=== PATIENT | male | born 1990 | race Caucasian/White ===

== ENCOUNTER → 2017-12-08 16:21 | Outpatient (CLI) | payer BC, SELFPAY ==
--- NOTE | 2017-12-08 | XR_ITS ---
XR lumbar spine min 4V Ordering Physician: Carlitos Lopez MD Patient Age: 27 years: Male HISTORY: ITS.REASON: SPINAL STENOSIS HISTORY of spinal stenosis with neurogenic claudication. No injury or trauma TECHNIQUE: 5 view lumbar spine series COMPARISON : 2008 Previous L-spine series FINDINGS The vertebral bodies appear intact with no compression fracture nor lesion. Transitional vertebra is seen at T12. Pedicles and transverse processes are intact. No acute findings There is some mild narrowing at L4/5 disc space and L5/S1 with borderline narrowing at L3/4. No spondylolysis nor listhesis is identified but there is suggestion of relatively short pedicles of mild relative narrowing AP diameter of the spine which may be gland itself to developing spinal stenosis as well as suggested in history. No CT or MRI studies here. There is trace calcification at the posterior margin L 2/3 disc also noted which may be associated with a mild disc bulge IMPRESSION: No acute findings no fracture Suggestion of minimal disc space narrowing L4/5 and L5/S1 disc space, with borderline narrowing L3/4 disc . Additional comments in text
--- NOTE | 2017-12-08 | XR_ITS ---
XR hip LT 2-3V w/pelvis Ordering Physician: Carlitos Lopez MD Patient Age: 27 years: Male HISTORY: ITS.REASON: LEFT HIP PAIN Right hip pain. Neurogenic claudication history of spinal stenosis suggested TECHNIQUE: AP frog-leg left hip along with AP pelvis from the lumbar spine series offset hip study COMPARISON :AP pelvis & right hip exam 12/08/2017 FINDINGS Left femoral head and neck are intact femoral head normal density and contour. Hip joint spaces well-maintained. No fracture nor dislocation. Trochanteric region intact & unremarkable AP pelvis. Intact with no acute or significant findings. Both hips appear symmetric with joint space well maintained. Sacrum and SI joints unremarkable on these views. IMPRESSION: Negative left hip.
--- NOTE | 2017-12-08 | XR_ITS ---
XR hip RT 2-3V w/pelvis Ordering Physician: Carlitos Lopez MD Patient Age: 27 years: Male HISTORY: ITS.REASON: RIGHT HIP PAIN Progressive right hip pain. TECHNIQUE: AP frog-leg view right hip along with AP pelvis. COMPARISON : FINDINGS The right femoral head and neck are intact femoral head normal density and contour. Hip joint spaces well-maintained. No fracture nor dislocation. Trochanteric region intact an unremarkable AP pelvis. Intact with no acute or significant findings. Both hips appear symmetric with joint space well maintained. Sacrum and SI joints unremarkable on these views. IMPRESSION: Negative right hip and AP pelvis
== END ==
PROVIDERS: PCP Internal Medicine Adolescent Medicine; Visit Provider Internal Medicine Adolescent Medicine
DX: M25.551 Pain in right hip (principal); M48.062 Spinal stenosis, lumbar region with neurogenic claudication
CPT/HCPCS: 72110; 73502

== ENCOUNTER → 2017-12-31 10:58 | Outpatient (CLI) | payer BC, SELFPAY ==
--- NOTE | 2017-12-31 11:26 | MR_ITS ---
MR lumbar spine wo con, MR 3-d myelogram/MRCP HISTORY: PT states low back pain X years But flared back up in mid November. ITS.REASON: SPINAL STENOSIS OF LUMBAR REGION, LOW BACK PAIN ORDERING PHYSICIAN: Carlitos Lopez MD PATIENT AGE: 27 years Comparison: X-RAY 12/08/17 TECHNIQUE: Standard multiplanar multiecho sequences are performed without contrast. 3-D MIP and myelographic images are also rendered and reviewed FINDINGS: There is normal alignment. The spinal cord ends at the T12 level. T11-T12, T12-L1, L1-L2 have an unremarkable appearance. L2-L3: Minimal bulging disc slightly eccentric towards the left lung with mild facet and ligamentum flavum hypertrophic change. L3-L4: Degenerative disc disease with bulging disc eccentric towards the left a small broad-based left paracentral disc protrusion. This impinges upon the left L4 nerve root causing left lateral recess narrowing. L4-L5: Degenerative disc disease with bulging disc along facet and ligamentum flavum hypertrophy with mild bilateral foraminal narrowing. Minimal broad-based bulging disc is present at this level. L5-S1: Degenerative disc disease with bulging disc with narrowing of the canal is 11 mm and mild bilateral foraminal narrowing. IMPRESSION: 1. Degenerative disc disease with bulging disc eccentric towards the left with a small broad-based left paracentral disc protrusion. This impinges upon the left L4 nerve root causing left lateral recess narrowing 2. Mild bulging disc at L2-L3 slightly eccentric toward the left and mild bulging disc at L4-5.
== END ==
PROVIDERS: PCP Internal Medicine Adolescent Medicine; Visit Provider Internal Medicine Adolescent Medicine
DX: M48.062 Spinal stenosis, lumbar region with neurogenic claudication (principal); M54.5 Low back pain
CPT/HCPCS: 72148; 76376; A9502

== ENCOUNTER → 2020-10-23 08:39 | Outpatient (POV) | payer BC, SELFPAY ==
[2020-10-23 08:51] VITALS: BP 125/74; PULSE 74; RESP 18; O2SAT 98; BMI 28.2
--- NOTE | 2020-10-23 09:11 | HMH.PMCON ---
Assessment and Plan (1) Degenerative disc disease Status: Chronic Category: Medical (2) Lumbar radiculopathy Status: Chronic Category: Medical Code(s): M54.16 - Radiculopathy, lumbar region (3) Back pain Status: Chronic Category: Medical Code(s): M54.9 - Dorsalgia, unspecified - Assessment and plan all Dx Assessment and Plan for all problems:: We will see the patient back on an as-needed basis. If he does have a flare of pain we will plan an L4-L5 lumbar epidural steroid injection. He is not on any anticoagulation. He has been dealing with this for more than 6 months. He is failed medication management and anti-inflammatories. Dr. Perry has reviewed this note and agrees with this plan of care. This note was dictated using voice recognition software and may contain errors or omissions HPI - Data of Consult Consult date: 10/23/20 Requesting Physician: Ariella Carrasco APRN Primary Care Provider: Carlitos Lopez MD - Consult Narrative Reason for consult: Back pain History of present illness: Mr. Zimmer is a 30 year old male who presents today for consultation regards his low back and leg pain. Patient has an MRI showing degenerative disc disease and nerve impingement at the L3-L4 nerve root. Patient does have bilateral radiculopathy. He rates his pain a 3 out of 10 stating that it is not bad at this time. Patient does have flares. He has been seen by neurosurgeon however it was determined that he is not a candidate for surgery. Patient states that stretching, heat, ice decrease pain. Patient would like to establish care today. CC: Ariella Carrasco APRN [facility] History I have reviewed the patient's past medical history: Yes Medical History: Denies:: Cancer, Diabetes Mellitus Type 1, Diabetes Mellitus Type 2, Internal Pacemaker, MRSA *Have you ever received a pneumonia vaccine?: Yes *Have you received a flu vaccine this season?: Yes Other Surgeries: No: Pacemaker Amputation: No - *Social History Last grade of school completed: Some college Smoking Status: Never smoker Alcohol Intake: never *Occupational Status:: employed Housing: house Household Members: spouse *Travel in the last 8 weeks: None Family Hx:: Unable to obtain Review of Systems - Review of Systems ROS General: no recent weight change, no fever, no sleep disturbances Respiratory: no cough, no shortness of air, no recurring pulmonary infections Cardiovascular/Peripheral Vascular: No chest pain, No palpitations, no edema, no shortness of breath. Gastrointestinal: no new onset incontinence, normal bowel movements reported Genitourinary: no new onset incontinence Musculoskeletal: Back pain, leg pain at times Psychiatric: normal mood/ affect Neurological: [denies new onset weakness in extremities], [denies new onset balance issues] Meds Home Medications Medication Instructions Recorded Confirmed Type Amoxicillin/Potassium Clav 1 tab PO Q12H 10 Days #20 tab 02/04/19 Rx [Augmentin 875-125 Tablet] Mupirocin [Mupirocin 2% UD oint 1 gm TP TID 1 Days #1 applic 02/04/19 Rx 1gm Topical syr] Allergies Allergy/AdvReac Type Severity Reaction Status Date / Time No Known Allergies Allergy Verified 02/04/19 14:20 Objective Vital signs: Pulse Resp BP Pulse Ox 74 18 125/74 98 10/23/20 08:51 10/23/20 08:51 10/23/20 08:51 10/23/20 08:51 Narrative: Physical Exam General: Alert and oriented x3, no acute distress, pleasant and cooperative, [on room air] Lungs: Resps E/U, Symmetrical chest expansion, Eyes: PERRL Musculoskeletal: Flexion and extension of lumbar spine somewhat guarded secondary to pain, deep tendon reflexes normal, strength in upper and lower extremities [5/5], normal gait noted Neurological: speech clear, pipe liner equal, no gross sensory deficits Opioid Risk Tool - Opioid Risk Tool-Male Family hx alcohol abuse: N Family hx illegal drugs: N
== END ==
PROVIDERS: PCP Internal Medicine Adolescent Medicine; Visit Provider Clinical Nurse Specialist Family Health
DX: M51.16 Intervertebral disc disorders with radiculopathy, lumbar region (principal)
CPT/HCPCS: 99202; G0463

== ENCOUNTER 2024-10-04 21:13 | Day surgery (SDC) | payer BC, SELFPAY ==
[2024-10-04] VITALS (7 sets, daily range): BP systolic 100–155; BP diastolic 69–91; PULSE 76–102; RESP 16–18; TEMP 36.2–37; O2SAT 98–100; BMI 29.7
--- NOTE | 2024-10-04 21:32 | HMH.EDGENADL ---
Discharge Plan Disposition Patient Disposition: Admitted Condition: Serious Prescriptions Prescriptions: No Action mupirocin 1 GM ointment 1 gm TP TID 1 Days Qty: 1 0RF amoxicillin-pot clavulanate 1 EACH tablet 1 tab PO Q12H 10 Days Qty: 20 0RF Referrals Follow up/Referrals: Carlitos Lopez MD [Primary Care Provider] - See instructions Clinical Impressions Clinical Impression: Food impaction of esophagus Qualifiers: Encounter type: initial encounter Qualified Code(s): T18.128A - Food in esophagus causing other injury, initial encounter Instructions Patient Instructions: DI for Skin Abscess Print Language Print Language: Slovenian Discharge ED Provider: Poppy Barrett General Adult HPI <KIMMIE Lakhani - Last Filed: 10/04/24 21:40> General Chief complaint: Skin/Abscess/Foreign Body Stated complaint: Piece of steak stuck in throat Time Seen by Provider: 10/04/24 21:32 Mode of Arrival: Ambulatory Source of Information: Patient Limitations: No Limitations Description of Symptoms (Recalled from ER Triage Doc. by RN): Pt presents with c/o having a piece of steak stuck in his throat. History of Present Illness HPI narrative: Patient presents for evaluation of food impaction. Patient was eating steak he felt like he got stuck going down. He has tried drinking pop jumping up and down and cannot relieve the sensation. He is intolerant of oral intake. He is able to tolerate his secretions currently but vomits it up periodically. This is never happened before and he denies chest pain shortness of breath fever chills hemoptysis hematochezia melena nausea vomit diarrhea. Related Data Previous Rx's ?Medication ?Instructions ?Recorded amoxicillin 875 mg-potassium 1 tab PO Q12H 10 days #20 tabs 02/04/19 clavulanate 125 mg tablet mupirocin 2 % topical ointment 1 gm TP TID 1 day #1 applic 02/04/19 Allergies Allergy/AdvReac Type Severity Reaction Status Date / Time No Known Allergies Allergy Verified 02/04/19 14:20 PFSH <KIMMIE Lakhani - Last Filed: 10/04/24 21:40> PFS Disclaimer: The information contained in this section may have been updated after the patient was seen, as this information can be updated by other users. Social History Smoking Status: Never smoker alcohol intake: never current occupational status: employed Travel in the last 8 weeks: None household members: spouse housing: house current occupation: [employer] current occupational exposures/hazards: No Have you lived/traveled outside US in past 30 days?: No Contact w/someone who lives/traveled outside US past 30 days?: No Exposure to someone with infectious disease in past 14 days?: No Do you have a fever (greater than 100.4 F or 38 C)?: No Have you tested positive for COVID-19: No Exposed to someone with COVID-19 in past 14 days?: No Do you have a sore throat?: No Do you have a cough?: No Do you have any weakness?: No Do you have any diarrhea?: No Are you experiencing any unusual bleeding?: No Do you have any muscle aches/pain?: No Do you have any abdominal pain?: No Are you experiencing loss of taste or smell?: No Other Medical History Have you received the Flu Vaccine for this season: Yes Have you received the Pneumonia Vaccine: Yes <KIMMIE Lakhani - Last Filed: 10/04/24 21:40> ROS Obtained: Yes Systems reviewed as appropriate & no additional complaints except as documented Physical Exam <KIMMIE Lakhani - Last Filed: 10/04/24 21:40> General General appearance: alert and in no apparent distress Respiratory Respiratory exam: Present normal lung sounds bilaterally Cardiovascular Cardiovascular exam: Present regular rate Neurological Exam Neurological exam: Present alert and oriented X3 Medical Decision Making <KIMMIE Lakhani - Last Filed: 10/04/24 21:40> Medical Records Screening: Per USPSTF and CDC recommendations, given the prevalence of disease in our region, it is our hospital?s policy to screen for HIV and viral Hepatitis for all patients aged 18 and over and those with ongoing risk factors. Titi Inquiry Pt receiving controlled substance: No Vital Signs: 10/04/24 21:25 10/04/24 22:01 10/04/24 22:30 Temperature 98.4 F Temperature Source Oral Pulse Rate 80 76 Pulse Rate [Right] 94 H Respiratory Rate 18 Blood Pressure 155/89 H 140/91 H Blood Pressure [Right Arm] 138/78 Blood Pressure Mean 101 Blood Pressure Mean [Right Arm] 98 Blood Pressure Source [Right Arm] Automatic Cuff Blood Pressure Position [Right Arm] Sitting 02 Sat by Pulse Oximetry 100 99 100 Oxygen Delivery Method Room Air Room Air Room Air Medical Decision Narrative: In summary patient is a 4-year-old male who presents to the emergency department for evaluation of food impaction. Patient is hemodynamically stable upon arrival, afebrile. Physical exam is remarkable for normal breath sounds normal heart sounds no abdominal tenderness. Patient is able to tolerate his secretions currently but no oral intake even sips of water as it comes immediately back up. Differential diagnosis includes food impaction of the possibility of esophageal injury is in the differential less likely.. Initial workup was considered with labs and imaging however patient has no red flags that this is anything other than food impaction thus no other workup is required. I contacted the general surgeon on-call and discussed patient presentation and findings and patient management and he is on the way in to take the patient to the endoscopy suite for attempted removal. <Poppy Barrett, DO - Last Filed: 10/04/24 22:44> Vital Signs: 10/04/24 21:25 10/04/24 22:01 10/04/24 22:30 Temperature 98.4 F Temperature Source Oral Pulse Rate 80 76 Pulse Rate [Right] 94 H Respiratory Rate 18 Blood Pressure 155/89 H 140/91 H Blood Pressure [Right Arm] 138/78 Blood Pressure Mean 101 Blood Pressure Mean [Right Arm] 98 Blood Pressure Source [Right Arm] Automatic Cuff Blood Pressure Position [Right Arm] Sitting 02 Sat by Pulse Oximetry 100 99 100 Oxygen Delivery Method Room Air Room Air Room Air Medical Decision Narrative: In summary patient is a 34-year-old male who presents to the emergency department for evaluation of food impaction. Patient is hemodynamically stable upon arrival, afebrile. Physical exam is remarkable for normal breath sounds normal heart sounds no abdominal tenderness. Patient is able to tolerate his secretions currently but no oral intake even sips of water as it comes immediately back up. Differential diagnosis includes food impaction of the possibility of esophageal injury is in the differential less likely.. Initial workup was considered with labs and imaging however patient has no red flags that this is anything other than food impaction thus no other workup is required. I contacted the general surgeon on-call and discussed patient presentation and findings and patient management and he is on the way in to take the patient to the endoscopy suite for attempted removal. I was consulted by the JESUS MANUEL, and we discussed the complexity of the problems being addressed. I approved the treatment and management plan for this patient's care in the emergency department, thus performing a substantive portion of the medical decision making. Poppy Barrett, DO Critical Care <KIMMIE Lakhani - Last Filed: 10/04/24 21:40> Critical Care Time Critical Care Time: No
--- NOTE | 2024-10-04 22:15 | P.CONS_ITS ---
History of Present Illness *Admission Date: 10/04/24 *Reason for visit:: Food stuck in esophagus *History of present illness: Patient is a healthy 34-year-old male. He was eating steak approximately 8:30 PM on 10/04/24. He felt like it had become lodged and he had been unable to swallow. He tried to drink liquids and tried jumping up and down in an attempt to pass the food bolus without success. He subsequently been unable to swallow oral intake. He has no prior history. No history of reflux. No history of dysphagia. [facility] Disclaimer: The information contained in this section may have been updated after the patient was seen, as this information can be updated by other users. Social History Smoking Status: Never smoker alcohol intake: never current occupational status: employed Travel in the last 8 weeks: None household members: spouse housing: house current occupation: [employer] current occupational exposures/hazards: No Have you lived/traveled outside US in past 30 days?: No Contact w/someone who lives/traveled outside US past 30 days?: No Exposure to someone with infectious disease in past 14 days?: No Do you have a fever (greater than 100.4 F or 38 C)?: No Have you tested positive for COVID-19: No Exposed to someone with COVID-19 in past 14 days?: No Do you have a sore throat?: No Do you have a cough?: No Do you have any weakness?: No Do you have any diarrhea?: No Are you experiencing any unusual bleeding?: No Do you have any muscle aches/pain?: No Do you have any abdominal pain?: No Are you experiencing loss of taste or smell?: No Meds Home Medications and Allergies Home Medications ?Medication ?Instructions ?Recorded ?Confirmed ?Type amoxicillin 875 mg-potassium 1 tab PO Q12H 10 days #20 tabs 02/04/19 Rx clavulanate 125 mg tablet mupirocin 2 % topical ointment 1 gm TP TID 1 day #1 applic 02/04/19 Rx New Prescriptions to Start Prescriptions: Allergies Allergy/AdvReac Type Severity Reaction Status Date / Time No Known Allergies Allergy Verified 02/04/19 14:20 Exam (Inpt) Vital signs and Labs for Last 24 Hours: Temp Pulse Resp BP Pulse Ox O2 Del Method 98.4 F 80 18 155/89 H 99 Room Air 10/04/24 21:25 10/04/24 22:01 10/04/24 21:25 10/04/24 22:01 10/04/24 22:01 10/04/24 22:01 I & O for Labs for Last 24 Hours: Intake & Output 10/02/24 10/03/24 10/04/24 10/05/24 11:59 11:59 11:59 11:59 Weight 225 lb Constitutional: no acute distress Head: Present normocephalic Respiratory: Present CTA bilaterally Cardiac: Present Reg Rate and Rhythm GI: Present soft Rectal (male): Present deferred (male): Present deferred Assessment and Plan *Assessment and plan (1) Food impaction of esophagus: Status: Acute Qualifiers: Encounter type: initial encounter Qualified Code(s): T18.128A - Food in esophagus causing other injury, initial encounter; W44.F3XA - Food entering into or through a natural orifice, initial encounter Category: Medical Code(s): T18.128A - Food in esophagus causing other injury, initial encounter; W44.F3XA - Food entering into or through a natural orifice, initial encounter Plan Plan to proceed with urgent endoscopy with retrieval of food impaction.
--- NOTE | 2024-10-04 22:18 | PC.NURSE ---
Patient placed in a gown
--- NOTE | 2024-10-04 22:18 | PC.NURSE ---
Dr. Mchugh with the patient.
--- NOTE | 2024-10-04 22:19 | PC.NURSE ---
Patient given a blanket.
--- NOTE | 2024-10-04 22:41 | PC.NURSE ---
Pt to surgery via stretcher
--- NOTE | 2024-10-04 23:08 | HMH.SCOPE ---
Procedure: Date: 10/04/24 Patient Date of :: 1990 Procedure Performed:: Esophagogastroduodenoscopy with retrieval of food impaction foreign body Indications:: Patient is a healthy 34-year-old male. He was eating steak approximately 8:30 PM on 10/04/24. He felt like it had become lodged and he had been unable to swallow. He tried to drink liquids and tried jumping up and down in an attempt to pass the food bolus without success. He subsequently been unable to swallow oral intake. He has no prior history. No history of reflux. No history of dysphagia. Performing Provider:: Thaddeus Mchugh MD Referring Provider:: Carlitos Lopez MD Sedation:: MAC sedation Procedure:: Patient history was obtained and appropriate physical examination was performed. Patient's medications and allergies were reviewed. Informed consent was obtained after explaining the benefits, alternatives, and risks of the procedure including, but not limited to, bleeding, perforation, missed lesions, and adverse reaction to anesthesia medications. Patient was transported to endoscopy procedure room. Patient was connected to monitoring devices. Throughout the procedure the patient's blood pressure, pulse, and oxygen saturations were monitored continuously. Patient identification and planned procedure were verified by the staff. Patient was positioned in lateral decubitus position. Olympus endoscope was inserted via the oropharynx. There were some secretions within the esophagus. Meat bolus food impaction was encountered at approximately 30 cm from the incisors. Attempt was made to retrieve this with Morris net. Portion was grasped and the endoscope was withdrawn partially but then the food bolus was lost to retrieval. Endoscope was withdrawn and the e- suction device was attached. Endoscope was reinserted. Food bolus was encountered at approximately 30 cm. The e- suction device was used and the food bolus was retrieved in its entirety. Consistent with a large piece of beef. The E section device was removed from the endoscope and endoscope was reinserted. There are a few particles of rice noted which are nonobstructing and easily passed into the gastric lumen. Endoscope was advanced to the gastric lumen. There was some liquid and food within the gastric lumen. No residual obstruction and no evidence of any gastric outlet obstruction. Endoscope was withdrawn. Findings:: Esophageal obstruction secondary to food impaction at approximately 30 cm Recommendations:: Limit to full liquid diet for 24 hours then soft diet. May take [id number] antacids. Recommend follow-up endoscopy to assess for esophagitis or stricture. Complications:: None immediately apparent Estimated blood obtained (mL): 0 Colonoscopy Component Colonoscopy Component Was a colonoscopy performed during today's procedure?: No
--- NOTE | 2024-10-05 07:09 | P.PNANES_ITS ---
[facility] Disclaimer: The information contained in this section may have been updated after the patient was seen, as this information can be updated by other users. Social History Smoking Status: Never smoker alcohol intake: never substance use type: denies use current occupational status: employed Travel in the last 8 weeks: None household members: spouse housing: house current occupation: [employer] current occupational exposures/hazards: No [facility] Anesthesia Checklist Patient Identification Patient Identification: Arm Band and Verbal (Name & ) Structural Data Admitted From: Home Planned Operative Procedure/s: EGD Consent for Planned Operative Procedure(s) Verified: Yes Verified Documents: Surgical Consent NPO Status Verified Time NPO: 20:30 Additional verifications Patient : No Anesthesia Reactions: No Hx Blood Transfusions: No Blood Transfusion Reaction: No Cephalosporin Allergy: No Previous Colonoscopy: No Cardiovascular Assessment Heart Sounds: S1 & S2 Pulse Strength: Baseline Pulse Rhythm: Regular Peripheral Edema: No Airway Assessment Mallampati Score:: Class I C-Spine Mobility Assessed: Yes TMJ Mobility Assessed: Yes Dentition: Good Dentition Neurological Assessment Level of Consciousness: Awake, Alert and Appropriate Hx Seizures: No Numbness or tingling in extremities: No Anesthesia Plan Anesthesia Risk discussed: Yes Anesthesia Plan: Verified ASA Class: I Anesthesia Type: MAC
== END 2024-10-04 23:32 | disposition home or self-care (01) ==
LOC: ER 21:40 → SDC 22:45
PROVIDERS: Emergency Provider Emergency Medicine; PCP Internal Medicine Adolescent Medicine; Visit Provider Surgery
PROC: 0DJ08ZZ Inspection of Upper Intestinal Tract, Via Natural or Artificial Opening Endoscopic (ICD-10-PCS; CPT 43247; principal; 2024-10-04 22:00)
DX: T18.128A Food in esophagus causing other injury, initial encounter (principal); W44.F3XA Food entering into or through a natural orifice, initial encounter
CPT/HCPCS: 43247